=== PATIENT | female | born 1945 | race Caucasian/White ===

== ENCOUNTER → 2023-11-01 14:28 | Outpatient (REF) | payer MEDICARE, OTHER, SELFPAY | LOC: RAD 14:28 | PROVIDERS: ATTENDING PHYSICIAN Surgery Vascular Surgery; FAMILY PHYSICIAN Family Medicine | DX: I65.29 Occlusion and stenosis of unspecified carotid artery (principal); I65.23 Occlusion and stenosis of bilateral carotid arteries | CPT/HCPCS: 93880 ==

== ENCOUNTER → 2023-11-23 16:28 | Outpatient (REF) | payer MEDICARE, OTHER, SELFPAY | LOC: RAD 16:28 | PROVIDERS: ATTENDING PHYSICIAN Family Medicine | DX: I70.1 Atherosclerosis of renal artery (principal); Z90.5 Acquired absence of kidney; N18.31 Chronic kidney disease, stage 3a | CPT/HCPCS: 76770 ==

== ENCOUNTER → 2024-01-30 10:51 | Outpatient (REF) | payer MEDICARE, OTHER, SELFPAY | LOC: WDC 10:51 | PROVIDERS: ATTENDING PHYSICIAN Obstetrics & Gynecology; FAMILY PHYSICIAN Family Medicine | DX: Z12.31 Encounter for screening mammogram for malignant neoplasm of breast (principal) | CPT/HCPCS: 77063; 77067 ==

== ENCOUNTER 2024-09-10 12:42 | Emergency (ER) | payer MEDICARE, OTHER, SELFPAY ==
[2024-09-10 12:45] VITALS: BP 146/75
[2024-09-10 13:03] LABS: % Basophils 1.7 % (0-2); % Eosinophils 4.3 % (0-6); % Immature Granulocytes 0.7 % (0-0.5); % Lymphocytes 33.8 % (20.5-51.1); % Neutrophils 51.5 % (42.2-75.2); Absolute Basophils 0.1 10^3/uL (0-0.2); Absolute Eosinophils 0.2 10^3/uL (0-0.7); Absolute Lymphocytes 1.6 10^3/uL (1.2-3.4); Absolute Monocytes 0.4 10^3/uL (0.1-0.6); Absolute Neutrophils 2.4 10^3/uL (1.4-6.5); Hematocrit 40.2 % (37.0-47.0); Hemoglobin 13.6 g/dL (12.0-16.0); Mean Corp Hgb Conc. 33.8 g/dL (33.0-37.0); Mean Corpuscular Hgb 31.7 pg (27.0-31.0); Mean Corpuscular Volume 93.7 fL (81.0-99.0); Mean Platelet Volume 10.2 fL (7.4-10.4); Nucleated Red Blood Cells % 0 %; Platelet Count 183 10^3/uL (130-400); Red Blood Cell Count 4.29 10^6/uL (4.20-5.40); Red Cell Dist. Width 12.6 % (11.5-14.5); White Blood Cell Count 4.6 10^3/uL (4.8-10.8)
[2024-09-10 13:32] LABS: ALT (SGPT) 16 U/L (0-35); AST (SGOT) 22 U/L (14-36); Albumin 4.5 g/dl (3.5-5.0); Alkaline Phosphatase 59 U/L (38-126); Blood Urea Nitrogen 25 mg/dl (7-17); Carbon Dioxide 28 mmol/L (22-30); Chloride 105 mmol/L (98-107); Glucose 102 mg/dl (70-99); Potassium 4.8 mmol/L (3.5-5.1); Sodium 138 mmol/L (135-145); Total Bilirubin 0.9 mg/dl (0.2-1.3); Total Protein 6.8 g/dl (6.3-8.2); eGFR 35.89
--- NOTE | 2024-09-10 15:57 | ED.GENMED ---
History of Present Illness
General
Chief Complaint: Abnormal Lab Value
Source: patient
Time Seen by Provider: 09/10/24 14:53
History of Present Illness
History of Present Illness:
78-year-old female with past medical history of hypertension, hyperlipidemia status post right nephrectomy secondary to surgical complication presenting to the ER at request of primary care provider who performed outpatient labs a few days ago which
showed mildly elevated creatinine and GFR prompting primary care to send patient to the ER for further evaluation. Patient reports that she is asymptomatic. Primary care's main concern is that patient only has her left kidney. Patient denies any
nausea, vomiting, diarrhea, urinary symptoms or any other concerns. She does report that she has had issues with controlling her blood pressure and has been following with primary care and cardiology for this. No other concerns
Past History
Past History
ED Past Medical History: GERD, HTN and Hypercholesterolemia
ED Past Surgical History: Cholecystectomy, Tonsilectomy and Urological
Social History
Tobacco: Non-smoker
Alcohol: None
Drug: None
Personal:
Living: with family
Review of Systems
Review of Systems
All Other Systems: ROS reviewed and negative except as documented in HPI and ROS
Phy Exam
Physical Exam
Physical Exam:
GENERAL: Alert , in no apparent distress
EYE: conjunctiva clear
NECK: Supple
ENT: o/p clr, mmm.
CARDIAC: Regular rate and rhythm
LUNGS: Clear breath sounds bilaterally, no acute respiratory distress, no wheezes/rales/rhonchi
NEUROLOGICAL: Alert and oriented
SKIN: Warm and dry, skin intact.
MUSCULOSKELETAL: well perfused.
PSYCH: Normal and appropriate interaction.
Scores
Heart Failure Risk
Heart Failure Risk Score: Not Applicable
Heart Score for Chest Pain Patients
STEMI patient?: Not applicable
Withdrawal Assessment of Alcohol
Withdrawal Assessment Completed?: Not applicable
Course
Orders/Labs/Results
Orders:
Orders
09/10/24 12:55
Complete Blood Count/With Diff Urgent
Comprehensive Metabolic Panel Urgent
09/10/24 15:09
US Kidneys [US Renal Only W/O Bladder] Urgent
Comment:
Reason For Exam: MAITE, s/p right nephrectomy
09/10/24 16:19
Urinalysis Reflex To Culture Urgent
Date Specimen was Collected: 09/10/24
Time Specimen was Collected: 16:17
Abnormal Lab Results
09/10/24
12:55
WBC 4.6 L 10^3/uL
(4.8-10.8)
MCH 31.7 H pg
(27.0-31.0)
Immature Gran % 0.7 H %
(0-0.5)
BUN 25 H mg/dl
(7-17)
Creatinine 1.5 H mg/dL
(0.6-1.0)
Glucose 102 H mg/dl
(70-99)
09/10/24 12:55
09/10/24 12:55
Vital Signs
Initial and Last Documented VS:
Initial Vital Signs
Temp Pulse Resp BP Pulse Ox
98.4 F 63 18 146/75 98
09/10/24 12:45 09/10/24 12:45 09/10/24 12:45 09/10/24 12:45 09/10/24 12:45
Last Documented Vital Signs
Temp Pulse Resp BP Pulse Ox
98.4 F 63 18 146/75 98
09/10/24 12:45 09/10/24 12:45 09/10/24 12:45 09/10/24 12:45 09/10/24 12:45
MDM/Problems Addressed
Differential Diagnosis Includes:
CKD, less concern for infectious etiology, no concern for pre-renal etiology such as volume loss/dehydration, medication side effects
MDM/Problems Addressed:
78-year-old female presenting to the ER for further evaluation of acute on chronic kidney disease. Patient is status post right knee from surgical complication only has left. She is asymptomatic presently. She does note a history of difficult to
control blood pressure which could be potential cause for patient's renal disease. Patient has an appointment already scheduled with nephrology on October 01 here at this facility. Will check urinalysis and ultrasound to evaluate for any
hydronephrosis or obstructive process. Will discuss with nephrology to see if they would prefer patient be admitted for further evaluation or continue outpatient evaluation as well as contact primary care provider to notify them of workup
findings/disposition planning.
Chronic conditions affecting care: Kidney disease
Acute Exacerbation and/or Progression of Chronic Illness: Kidney disease
*Radiology
Radiology exam reviewed: radiology read reviewed
*Pulse Oximetry
Patient hypoxic: no
*Critical Care Note
Total Time (30-74mins, 75-104mins- exclusive of procedures): Not Applicable
Patient Management
Discussion with other providers: Hospitalist and Modeling Agent
Escalation/DeEscalation of care consider admission/obs:
Case was discussed with nephrology who recommends patient get repeat labs done in 1 week. Agrees with remaining workup. Primary care provider was also notified and acknowledged to the workup plan. Anticipate discharge home pending ultrasound and
urinalysis findings.
US consistent with mild CKD. UA unremarkable. Patient stable for d/c home and outpatient labs in 1 week. Aware of return precautions to the ED
ED Attending Note
-
Portions of this chart may have been created with voice recognition software.� Occasional wrong word or��sound alike� substitutions may have occurred due to the inherent limitations of voice recognition software.
Discharge Plan
Departure
Patient Disposition: Home (Routine Discharge)
Date of Disposition: 09/10/24
Time of Disposition: 16:42
Patient with high blood pressure during this ER visit?: Yes
Discharge Problem:
CKD (chronic kidney disease)
Instructions: Chronic kidney disease
Prescriptions:
No Action
cholecalciferol (vitamin D3) [Vitamin D3] 50 mcg (2,000 unit) Tablet
50 mcg PO DAILY
mecobalamin (vitamin B12) [B12 Active] 1,000 mcg Tablet,Chewable
1,000 mcg PO 1XD
famotidine [Pepcid] 40 mg Tablet
40 mg PO DAILY
magnesium 250 mg Tablet
250 mg PO DAILY
omeprazole 20 mg Tablet,Disintegrat, Delay Rel
20 mg PO DAILY
aspirin 81 mg Tablet,Delayed Release (Dr/Ec)
81 mg PO DAILY Qty: 30 0RF
spironolactone 25 mg Tablet
25 mg PO DAILY Qty: 30 0RF
diltiazem HCl 120 mg Capsule,Extended Release 24hr
120 mg PO DAILY Qty: 30 0RF
valsartan [Diovan] 40 mg tablet
40 mg PO DAILY Qty: 30 0RF
Referrals:
Bharat Casiano Jr., DO [Family Provider] -
Eleni Blair MD [Active] - (Nephrology)
Activity Restrictions/Additional Instructions:
You need to have your blood work repeated in 1 week. Please contact your family doctor to have this done
Interventions
Interventions:
*Risk Screen - Suicide Last Done: 09/10/24 12:45
*General Assessment Last Done: 09/10/24 12:45
*Neglect/Abuse Screening Last Done: 09/10/24 12:45
ED- Fall Risk Assessment Last Done: 09/10/24 17:20
*ED COVID-19 Vaccine History Last Done: 09/10/24 17:19
*Nursing Disposition Last Done: 09/10/24 17:20
Discharge Date and Time
Discharge Date/Time: 09/10/24 17:21
Print Language: PASHTO
[2024-09-10 16:30] LABS: Urine Albumin Negative (Neg - Trace); Urine Bilirubin Negative (Negative); Urine Character Clear (Clear); Urine Color Yellow; Urine Glucose Negative (Negative); Urine Ketone Negative (Negative); Urine Leukocyte Negative (Negative); Urine Nitrite Negative (Negative); Urine Occult Blood Negative (Negative); Urine Urobilinogen Negative (Neg - 1+)
== END 2024-09-10 17:21 | disposition home or self-care (01) ==
LOC: EMR 12:42
PROVIDERS: Emergency Medicine; Physician Assistant Medical; EMERGENCY PHYSICIAN Emergency Medicine; FAMILY PHYSICIAN Family Medicine
DX: I12.9 Hypertensive chronic kidney disease with stage 1 through stage 4 chronic kidney disease, or unspecified chronic kidney disease (principal); N18.9 Chronic kidney disease, unspecified; E78.5 Hyperlipidemia, unspecified; Z90.5 Acquired absence of kidney; Z90.49 Acquired absence of other specified parts of digestive tract
CPT/HCPCS: 99284; 76775; 80053; 81003; 85025

== ENCOUNTER → 2024-10-08 07:43 | Outpatient (REF) | payer MEDICARE, OTHER, SELFPAY | LOC: RAD 07:43 | PROVIDERS: ATTENDING PHYSICIAN Surgery Vascular Surgery; FAMILY PHYSICIAN Family Medicine | DX: M81.0 Age-related osteoporosis without current pathological fracture (principal); Z78.0 Asymptomatic menopausal state; I71.40 Abdominal aortic aneurysm, without rupture, unspecified | CPT/HCPCS: 76770; 77080 ==

== ENCOUNTER → 2025-02-07 16:26 | Outpatient (REF) | payer MEDICARE, OTHER, SELFPAY | LOC: WDC 16:26 | PROVIDERS: ATTENDING PHYSICIAN Obstetrics & Gynecology; FAMILY PHYSICIAN Family Medicine | DX: Z12.31 Encounter for screening mammogram for malignant neoplasm of breast (principal) | CPT/HCPCS: 77063; 77067 ==

== ENCOUNTER → 2025-03-12 11:17 | Outpatient (REF) | payer MEDICARE, OTHER, SELFPAY | LOC: RAD 11:17 | PROVIDERS: ATTENDING PHYSICIAN Physician Assistant; FAMILY PHYSICIAN Family Medicine | DX: M54.59 Other low back pain (principal) | CPT/HCPCS: 72072; 72100 ==

== ENCOUNTER → 2025-03-15 09:20 | Outpatient (REF) | payer MEDICARE, OTHER, SELFPAY ==
[2025-03-17 09:30] LABS: ANA, IgG Reflex to HEp-2 None Detected (None Detected)
[2025-03-18 01:38] LABS: SSA 52 (Ro)(ENA) Ab, IgG 6 AU/mL (0-40); SSA 60 (Ro)(ENA) Ab, IgG 1 AU/mL (0-40); SSB (La)(ENA) Ab, IgG 0 AU/mL (0-40)
[2025-03-18 01:42] LABS: Purkinje Cell/Neuronal Nuc IgG None Detected (None Detected)
== END ==
LOC: REG 09:20
PROVIDERS: ATTENDING PHYSICIAN Specialist; FAMILY PHYSICIAN Family Medicine
DX: G60.3 Idiopathic progressive neuropathy (principal)
CPT/HCPCS: 36415; 82784; 83521; 84155; 84165; 86038; 86235; 86255; 86334; 86430